=== PATIENT | male | born 1995 | race Caucasian/White ===

== ENCOUNTER → 2022-08-11 | Outpatient (CLI) | payer OTHER ==
[2022-08-11 10:06] VITALS: BP 135/73
--- NOTE | 2022-08-11 11:38 | Cardiology Stress Test Report ---
Stress Test Report Date of Procedure/Referring: Date of Procedure: Aug 11, 2022 PCP Lawrence Wagoner DO Admitting Physician Admitting Physician: Attending Physician: Ashley Simms MD Baseline Heart Rate: 77 Baseline Blood Pressure: Blood Pressure Systolic: 135 Blood Pressure Diastolic: 73 Baseline EKG: Baseline EKG: NSR Summary/Conclusion: Summary: In summary, the patient started exercising with a baseline heart rate, blood pressure and EKG mentioned above Patient was able to exercise for a total of 12 minutes on Nikita protocol, METs 12.3 Maximum heart rate 172 Maximum blood pressure 211/66 Stress EKG, Minimal nondiagnostic changes Recovery EKG , Return to baseline Conclusion: 1. Good exercise tolerance for a total of 12 minutes on Nikita protocol, 12.3 METs, achieving 89 percent of maximum expected heart rate 2. Minimal nondiagnostic EKG changes with exercise returned to baseline during recovery 3. No arrhythmia was noted 4. Hypertensive response to exercise with peak blood pressure 211/66 return to baseline during recovery Copy Copies To 1: LAWRENCE WAGONER DO Copies To 2: [facility] [place] ASHLEY SIMMS MD Aug 11, 2022 11:38
== END ==
LOC: CARD 08:46
PROVIDERS: ATTEND Internal Medicine Cardiovascular Disease
DX: R00.2 Palpitations (principal)
CPT/HCPCS: 93017; C8929; 93306